=== PATIENT | female | born 1945 | race Caucasian/White ===

== ENCOUNTER 2022-06-15 12:47 | Emergency (ER) | payer MEDICARE ==
[~2022-06-15] VITALS: Ht 162.6 cm; Wt 63.5 kg
[2022-06-15 12:50] VITALS: BP_SYST 140
--- NOTE | 2022-06-15 12:55 | NUR ---
Patient triaged and placed in waiting room. VSS and patient appears in no acute distress at this time. Accompanied by FAMILY, awaiting available bed, and MD notified of need for MSE.
--- NOTE | 2022-06-15 13:05 | NUR ---
COVID AND INFLUENZA SWABS SENT TO LAB.
[2022-06-15] MEDS ORDERED: NACL 0.9% 1,000 ML IV ONE ×2 (14:30→19:15)
[2022-06-15] MEDS ORDERED: ONDANSETRON HCL 4 MG/2 ML VIAL IVP ONE (14:30)
[2022-06-15] MEDS ORDERED: KETOROLAC TROMETHAMINE 30 MG VIAL IVP ONE (14:30)
[2022-06-15 15:12] LABS: HEMATOCRIT 41.9 % (36-48); HEMOGLOBIN 13.9 g/dL (12.0-16.0); MEAN CORPUSCULAR HEMOGLOBIN 30 pg (27-31); MEAN CORPUSCULAR HGB CONC 33 % (32-36); MEAN CORPUSCULAR VOLUME 90 fL (79.0-98.0); PLATELET COUNT (AUTO) 60 K/uL (130-430); RED BLOOD CELL COUNT(AUTO) 4.67 MIL/uL (4.2-6.2)
[2022-06-15 15:18] LABS: ANION GAP 17 (5-15); CALCIUM 9.7 mg/dL (8.4-11.0); CHLORIDE 100 mmol/L (98-107); CREATININE 2.61 mg/dL (0.55-1.30); GLUCOSE 178 mg/dL (70-99); UREA NITROGEN, BLOOD 62 mg/dL (8-21)
[2022-06-15 15:24] LABS: ALANINE AMINOTRANSFERASE 41 U/L (12-78); ALBUMIN 2.6 g/dL (3.4-4.8); ASPARTATE AMINOTRANSFERASE 39 U/L (10-37); LIPASE 84 U/L (73-393); TOTAL BILIRUBIN 1.1 mg/dL (0.0-1.0)
[2022-06-15 15:53] LABS: BAND % (MANUAL) 11 % (0-6); BASOPHILS % (MANUAL) 0 % (0-2); EOSINOPHILS % (MANUAL) 1 % (0-7); LYMPHOCYTES % (MANUAL) 6 % (20-46); MONOCYTES % (MANUAL) 2 % (0-11)
--- NOTE | 2022-06-15 17:00 | NUR ---
PT BIB BLS FROM HOME CC FLU LIKE SYMPTOMS. PT COMPLAINS OF FEVER, SORE THROAT, DIARRHEA NAUSEA, AND EPISODES OF VOMITING.
--- NOTE | 2022-06-15 17:30 | NUR ---
PT IN ER [facility] C/O FEVER, NAUSEA, VOMITING AND STOMACH PAIN, PT HAS 100.3] FEVER MD NOTIFIED. PT IS VSS NAD.
--- NOTE | 2022-06-15 17:40 | NUR ---
Medicated per MD orders. IVF infusing with no s/s of infiltration at this time. Will cont to monitor
--- NOTE | 2022-06-15 18:08 | NUR ---
# 20 gauge angiocath placed to RAC. Use of asceptic technique. Opsite placed over site. Blood return noted. Blood for lab drawn from site. Flushed with 10 cc of normal saline. No evidence of infiltration noted. Patient tolerated well.
[2022-06-15] MEDS ORDERED: KETOROLAC TROMETHAMINE 30 MG VIAL ONE (18:13)
[2022-06-15] MEDS ORDERED: ONDANSETRON HCL 4 MG/2 ML VIAL ONE (18:14)
[2022-06-15] MEDS ORDERED: ACETAMINOPHEN 325 MG TABLET PO ONE (19:15)
[2022-06-15] MEDS ORDERED: IBUP-1969 PO (20:01)
[2022-06-15] MEDS ORDERED: ONDA-8 TL (20:01)
[2022-06-15 21:15] VITALS: BP_SYST 131
--- NOTE | 2022-06-15 21:16 | NUR ---
Patient given written and verbal discharge instructions and verbalizes understanding. ER MD Vidal discussed with patient the results and treatment provided. Patient in stable condition. ID arm band removed. IV catheter removed intact and dressing applied, no active bleeding. Rx of Ibuprofen and Zofran sent to preferred pharmacy. Patient educated on pain management and to follow up with PMD. Pain Scale 0/10. Opportunity for questions provided and answered. Medication side effect fact sheet provided.
== END 2022-06-15 21:05 | disposition home or self-care (01) ==
LOC: SED 12:47
DX: A08.4 Viral intestinal infection, unspecified (principal); R11.2 Nausea with vomiting, unspecified; E86.0 Dehydration; R19.7 Diarrhea, unspecified; R10.33 Periumbilical pain; Z79.899 Other long term (current) drug therapy; Z20.822 Contact with and (suspected) exposure to COVID-19
CPT/HCPCS: 99284; 96374; 96361; 96375; 87426; 85027; 80053; 83690; 85007; 36415; 87804 ×2; J1885; J2405; J7030